=== PATIENT | female | born 1955 | race African-American/Black ===

== ENCOUNTER → 2020-08-30 10:26 | Outpatient (BNVA) | payer BC, SELFPAY | PROVIDERS: PCP Internal Medicine Endocrinology, Diabetes & Metabolism; Visit Provider Internal Medicine Cardiovascular Disease | DX: Z76.89 Persons encountering health services in other specified circumstances (principal) ==

== ENCOUNTER → 2020-12-08 08:46 | Outpatient (BNVA) | payer BC, SELFPAY | PROVIDERS: PCP Internal Medicine Endocrinology, Diabetes & Metabolism; Visit Provider Internal Medicine Cardiovascular Disease ==

== ENCOUNTER → 2020-12-20 08:26 | Outpatient (BNVA) | payer BC, SELFPAY | PROVIDERS: PCP Internal Medicine Endocrinology, Diabetes & Metabolism; Visit Provider Internal Medicine Cardiovascular Disease ==

== ENCOUNTER → 2021-01-20 09:44 | Outpatient (BNVA) | payer BC, SELFPAY | PROVIDERS: PCP Internal Medicine Endocrinology, Diabetes & Metabolism; Visit Provider Nurse Practitioner Family ==

== ENCOUNTER 2021-02-11 07:48 | Outpatient (REF) | payer BC, SELFPAY ==
--- NOTE | ~2021-02-11 | US_ITS ---
EXAMINATION: US RETROPERITONEAL LIMITED (RENAL ONLY) CLINICAL INFORMATION: Essential primary hypertension. COMPARISON: Previous abdominal ultrasound January 2016 TECHNIQUE: Doppler color and ortega-scale evaluation of the kidneys, bilateral renal arteries and renal veins including waveform spectral analysis. FINDINGS: RIGHT KIDNEY: 10 x 4.2 x 6.4 cm (SAG x AP x TRV). The kidney is normal in size, contour, and echogenicity. Renal cortical thickness is normal. No calculi or focal parenchymal lesions. No hydronephrosis. LEFT KIDNEY: 10 x 4.7 x 6.1 cm (SAG x AP x TRV). The kidney is normal in size, contour, and echogenicity. Renal cortical thickness is normal. No calculi or focal parenchymal lesions. No hydronephrosis. Peak systolic velocity in the abdominal aorta is slightly elevated measuring 107 cm/s and cannot be used to determine renal artery to aorta ratio. The right renal artery is patent. The right renal artery peak systolic velocity measures 72 cm/s proximally, 111 cm/s midportion and 120 cm/s distally. Resistive indices of the segmental renal arteries in the right kidney are normal measuring 0.7-0.8. The right renal vein is patent. The left renal artery is patent. The left renal artery peak systolic velocities measure 80 cm/s proximally, 108 cm/s midportion and 156 cm/s distally. Resistive indices of the segmental renal arteries in the left kidney are normal measuring 0.8. The left renal vein is patent. US/US renal BI IMPRESSION: Normal renal ultrasound. No evidence of renal artery stenosis.
--- NOTE | ~2021-02-11 | US_ITS ---
EXAMINATION: US RETROPERITONEAL LIMITED (RENAL ONLY) CLINICAL INFORMATION: Essential primary hypertension. COMPARISON: Previous abdominal ultrasound January 2016 TECHNIQUE: Doppler color and ortega-scale evaluation of the kidneys, bilateral renal arteries and renal veins including waveform spectral analysis. FINDINGS: RIGHT KIDNEY: 10 x 4.2 x 6.4 cm (SAG x AP x TRV). The kidney is normal in size, contour, and echogenicity. Renal cortical thickness is normal. No calculi or focal parenchymal lesions. No hydronephrosis. LEFT KIDNEY: 10 x 4.7 x 6.1 cm (SAG x AP x TRV). The kidney is normal in size, contour, and echogenicity. Renal cortical thickness is normal. No calculi or focal parenchymal lesions. No hydronephrosis. Peak systolic velocity in the abdominal aorta is slightly elevated measuring 107 cm/s and cannot be used to determine renal artery to aorta ratio. The right renal artery is patent. The right renal artery peak systolic velocity measures 72 cm/s proximally, 111 cm/s midportion and 120 cm/s distally. Resistive indices of the segmental renal arteries in the right kidney are normal measuring 0.7-0.8. The right renal vein is patent. The left renal artery is patent. The left renal artery peak systolic velocities measure 80 cm/s proximally, 108 cm/s midportion and 156 cm/s distally. Resistive indices of the segmental renal arteries in the left kidney are normal measuring 0.8. The left renal vein is patent. US/US renal doppler IMPRESSION: Normal renal ultrasound. No evidence of renal artery stenosis.
== END 2021-02-11 07:49 | disposition home or self-care (01) ==
LOC: HO.US 07:48
PROVIDERS: Visit Provider Nurse Practitioner Family
DX: I10 Essential (primary) hypertension (principal)
CPT/HCPCS: 76775; 93975

== ENCOUNTER → 2021-03-21 08:46 | Outpatient (BNVA) | payer BC, SELFPAY | PROVIDERS: PCP Internal Medicine Endocrinology, Diabetes & Metabolism; Visit Provider Internal Medicine Cardiovascular Disease ==

== ENCOUNTER 2021-06-17 11:29 | Outpatient (REF) | payer MEDICARE, SELFPAY ==
--- NOTE | ~2021-06-17 | MM_ITS ---
EXAMINATION: MM SCREENING DIGITAL BREAST TOMOSYNTHESIS, BILATERAL CLINICAL INFORMATION: Screening. Asymptomatic. The lifetime risk of breast cancer based on the Tyrer-Cuzick Model is 10%. COMPARISON: Mammography: 06/19/2019 (baseline). TECHNIQUE: Digital breast tomosynthesis is performed in both the craniocaudal and mediolateral oblique views along with computer-aided detection (CAD). Synthesized 2D images are generated from the tomosynthesis. FINDINGS: There are scattered areas of fibroglandular density (ACR BI-RADS breast composition Category b). There are no significant masses, abnormal calcifications, or other abnormalities. There is an incidental intramammary node posterior upper outer right breast similar to prior exam. Skin contours are smooth. MM/MM tomosynthesis screening BI IMPRESSION: No mammographic evidence of malignancy. ASSESSMENT: BI-RADS 2: Benign RECOMMENDATION: Routine annual mammography screening. This patient's information was entered into a reminder system with a target due date for their next mammogram.
== END 2021-06-17 11:30 | disposition home or self-care (01) ==
LOC: HO.MAMMO 11:29
PROVIDERS: PCP Family Medicine; Visit Provider Family Medicine
DX: Z12.31 Encounter for screening mammogram for malignant neoplasm of breast (principal)
CPT/HCPCS: 77063; 77067

== ENCOUNTER → 2021-06-24 08:18 | Outpatient (REF) | payer MEDICARE, SELFPAY ==
--- NOTE | 2021-06-24 08:35 | CA_ITS ---
Transthoracic Echocardiogram Patient (Last, First, Middle): Lisa Sequeira, Gender: Female Date of : 1955 Age: 66 Procedure Date: 06/24/2021 Procedure Type: Transthoracic Echocardiogram Location: OP Height: 157.48 cm Weight: 87.54 kg BSA: 1.88 m2 Heart Rate: bpm BP: 145 / 82 mmHg [place] Turner: MERYL Referring MD: Augusta Richard TANYARD WORKER-C Symptoms: I10 - Essential (primary) hypertension Study Quality: Fair ECG Rhythm: Sinus Conclusions: - The left ventricular systolic function is hyperdynamic. The visually estimated ejection fraction is >70%. - There is mild calcification of the aortic valve. - There is mild mitral annular calcification. Findings Left Ventricle Normal left ventricular cavity size. There is moderately increased left ventricular wall thickness. The left ventricular systolic function is hyperdynamic. The visually estimated ejection fraction is >70%. There is no evidence of regional wall motion abnormalities. E/E prime ratio is >15, consistent with elevated filling pressures. Evidence suggests grade I (mild) diastolic dysfunction. Right Ventricle Normal right ventricular cavity size and systolic function. Atria Both atria are normal in size. Aortic Valve There is a normal trileaflet aortic valve. There is mild calcification of the aortic valve. There is no aortic valve stenosis. There is no aortic valve regurgitation. Mitral Valve There is mild mitral annular calcification. There is no mitral valve regurgitation. There is no mitral valve stenosis. Pulmonic Valve The pulmonic valve was not well visualized. There is trace pulmonic valve regurgitation. Tricuspid Valve Normal tricuspid valve structure. There is trace tricuspid valve regurgitation. The pulmonary artery systolic pressure is normal. Great Vessels The asc aorta is normal in size. Venous The inferior vena cava is normal in size and collapses greater than 50% with inspiration. Pericardium/Pleural There is no evidence of pericardial effusion. Prior Study Comparison No prior study available for comparison. Measurements 2D Linear Measurements IVSd: 1.26 0.6-0.9/0.6-1.0 cm LVIDd: 3.17 3.9-5.3/4.2-5.9 cm LVIDd Index: 1.69 2.4-3.2/2.2-3.1 cm/m2 LVIDs: 1.84 2.0-3.6 cm LVPWd: 1.21 0.7-1.1 cm Ao Root: 2.70 2.1-3.5 cm LA Diam: 3.60 2.7-3.8/3.0-4.0 cm LAIDs Index: 1.91 1.5-2.3 cm/m2 LV Mass: 153.45 67-162/88-224 g LV Mass Index: 81.62 43-95/49-115 g/m2 LVOT Diam: 2.00 3.0+(-)1.3 cm 2D Systolic Function EF 4C: 77.20 >55% EF 2C: 77.90 >55% EF BiP: 77.90 >55% Mitral Valve MV Pk E: 0.57 MV PK A: 1.23 MV Decel Time: 234.00 E/A: 0.50 E'Lateral: 4.24 E'Medial: 3.37 E/E' Med: 16.80 E/E' Lat: 13.30 PHT: 69.00 MVA PHT: 3.19 Decel Bell: 2.42 Aortic Valve AoV Pk Monty: 1.35 AoV Mn Monty: 0.89 AoV VTI: 0.32 AoV Pk Grad: 7.00 Aov Mn Grad: 4.00 STEVIE Cont.VTI: 1.89 LVOT LVOT Pk Monty: 0.88 LVOT Mn Monty: 0.63 LVOT VTI: 0.19 LVOT Pk Grad: 3.00 LVOT Mn Grad: 2.00 LVOT Diam: 2.00 LVOT Area: 3.14 Diastolic Function MV Pk E: 0.57 MV Pk A: 1.23 E/A: 0.50 E'Medial: 3.37 E/E' Med: 16.80 E' Laterial: 4.24 E/E' Lat: 13.30 Right Ventricle TAPSE (mm): 28.00 TVS' Monty: 13.00 Tricuspid Valve TR Pk Monty: 1.98 TR Pk Grad: 16.00 Great Vessels Aorta Ao Root-2D: 2.70 2.0-3.7 cm Ao Asc: 3.20 2.1-3.4 cm Pulmonary Valve PV Pk Monty: 0.91 Peak PV Grad: 3.00 Updated in Other Vendor System with Status of Final Maury Coronado MD electronically signed on 06/24/2021 1:18:58 PM with status of Final
== END ==
LOC: HO.CARD 08:18
PROVIDERS: PCP Family Medicine; Visit Provider Nurse Practitioner Family
DX: I10 Essential (primary) hypertension (principal)
CPT/HCPCS: 93306

== ENCOUNTER → 2021-08-01 09:23 | Outpatient (BNVA) | payer OTHER, SELFPAY | PROVIDERS: PCP Family Medicine; Visit Provider Internal Medicine Cardiovascular Disease | DX: I65.29 Occlusion and stenosis of unspecified carotid artery (principal); I10 Essential (primary) hypertension; E78.5 Hyperlipidemia, unspecified | CPT/HCPCS: 93005; 99212 ==

== ENCOUNTER 2022-01-23 09:28 | Outpatient (REF) | payer OTHER, SELFPAY ==
[2022-01-23 10:56] LABS: Blood Urea Nitrogen 15 mg/dL (9-16); Estimated Glomerular Filt Rate 46
== END 2022-01-23 09:29 | disposition home or self-care (01) ==
LOC: HO.LAB 09:28
PROVIDERS: PCP Family Medicine; Visit Provider Surgery Vascular Surgery
DX: I65.23 Occlusion and stenosis of bilateral carotid arteries (principal)
CPT/HCPCS: 36415; 82565; 84520

== ENCOUNTER 2022-01-26 07:51 | Outpatient (REF) | payer OTHER, SELFPAY ==
--- NOTE | ~2022-01-26 | CT_ITS ---
EXAMINATION: CT ANGIOGRAM NECK WITH CONTRAST CLINICAL INFORMATION: Occlusion and stenosis of carotid artery. COMPARISON: None. TECHNIQUE: Test bolus sequences followed by intravenous administration 70 mL of Omnipaque 350. Helical imaging was performed in the axial plane from the thoracic inlet to the skull base. The data was processed at the certified neurodiagnostic technologist workstation for generation of MIP sequences. Angled MIPs and volume rendered reformatted images were also generated at an offline 3D workstation. Stenoses are assessed in accordance with NASCET criteria unless otherwise indicated. This CT examination was performed using dose optimization techniques as appropriate, variously including the following: *Automated exposure control *Adjustment of mA and/or kV according to patient size (this includes techniques or standardized protocols for targeted exams where dose is matched to indication/reason for exam; i.e. extremities or head) *Use of iterative reconstruction technique DLP: 461 mGy-cm FINDINGS: Neck CTA: The aortic arch and great vessel origins are patent. Atheromatous changes are seen at the carotid bifurcation without significant stenosis of the internal carotid artery. The cervical right ICA segment is patent. Left common carotid artery demonstrates moderate stenosis across a 1.0 cm segment along its mid to distal course. Moderate tandem stenoses are seen involving the distal left common carotid artery just proximal to the bifurcation. At the carotid bifurcation the left ICA is completely occluded. The cervical ICA does not reconstitute in the neck. Significant atheromatous changes are noted at the bilateral carotid siphons resulting in moderate stenosis of the right-sided cavernous and paraclinoid segment. The left carotid siphon is not significantly opacified. Calcific plaque narrows the origin of the right vertebral artery. Both vertebral arteries are otherwise patent in the neck. Head CTA: Limited evaluation demonstrates minimal reconstitution of the left carotid terminus through the anterior communicating artery and through the intact posterior communicating artery. The left MCA is opacified proximally opacified but demonstrates apparent severe stenosis of the distal M1 segment. No definite intracranial arterial occlusion is seen. Non-vascular findings: Emphysema is noted within the upper lungs. The cervical soft tissues are within normal limits. Degenerative changes are seen within the spine. Intracranial contents are not diagnostically assessed. No gross mass effect is seen. CT/CT angio neck IMPRESSION: Left internal carotid artery appears completely occluded from the origin without reconstitution in the neck. Mild reconstitution of the left carotid terminus through the anterior communicating artery and posterior communicating artery. Approximately severe stenosis seen at the distal left M1 MCA segment. Moderate stenosis of the left common carotid artery in its mid to distal course and tandem moderate stenoses involving the distal left common carotid artery just proximal to the carotid bifurcation.
[2022-01-26] MEDS: iohexoL 350 MG/ML 100 ML INFUS..BTL IV (10:26)
== END 2022-01-26 07:52 | disposition home or self-care (01) ==
LOC: HO.CT 07:51
PROVIDERS: PCP Family Medicine; Visit Provider Surgery Vascular Surgery
DX: I65.29 Occlusion and stenosis of unspecified carotid artery (principal)
CPT/HCPCS: 70498; Q9967

== ENCOUNTER → 2022-02-01 14:30 | Outpatient (BNVA) | payer OTHER, SELFPAY | PROVIDERS: PCP Family Medicine; Visit Provider Internal Medicine Cardiovascular Disease | DX: I65.29 Occlusion and stenosis of unspecified carotid artery (principal); I10 Essential (primary) hypertension | CPT/HCPCS: 99212 ==

== ENCOUNTER → 2022-04-17 10:29 | Outpatient (BNVA) | payer OTHER, SELFPAY | PROVIDERS: PCP Family Medicine; Visit Provider Internal Medicine Cardiovascular Disease | DX: I65.29 Occlusion and stenosis of unspecified carotid artery (principal); I10 Essential (primary) hypertension | CPT/HCPCS: 93005; 99212 ==

== ENCOUNTER 2022-06-26 10:33 | Outpatient (REF) | payer OTHER, SELFPAY ==
--- NOTE | ~2022-06-26 | MM_ITS ---
EXAMINATION: MM SCREENING DIGITAL BREAST TOMOSYNTHESIS, BILATERAL CLINICAL INFORMATION: Screening. Asymptomatic. The lifetime risk of breast cancer based on the Tyrer-Cuzick Model is 9%. COMPARISON: Mammography: 06/17/2021, 06/19/2019 (baseline) TECHNIQUE: Digital breast tomosynthesis is performed in both the craniocaudal and mediolateral oblique views along with computer-aided detection (CAD). Synthesized 2D images are generated from the tomosynthesis. FINDINGS: There are scattered areas of fibroglandular density (ACR BI-RADS breast composition Category b). There are no significant masses, abnormal calcifications, or other abnormalities. Breast tissue composition borders on predominantly fatty. Background stromal markings are normal. There is an incidental intramammary node again seen posterior upper outer right breast. The axilla are unremarkable. Incidental low left axillary tail node on left MLO view. Skin contours are smooth. MM/MM tomosynthesis screening BI IMPRESSION: No mammographic evidence of malignancy. ASSESSMENT: BI-RADS 2: Benign RECOMMENDATION: Routine annual mammography screening. This patient's information was entered into a reminder system with a target due date for their next mammogram.
== END 2022-06-26 10:34 | disposition home or self-care (01) ==
LOC: HO.MAMMO 10:33
PROVIDERS: Visit Provider Family Medicine
DX: Z12.31 Encounter for screening mammogram for malignant neoplasm of breast (principal)
CPT/HCPCS: 77063; 77067

== ENCOUNTER → 2022-12-18 14:59 | Outpatient (BNVA) | payer OTHER, SELFPAY | PROVIDERS: PCP Family Medicine; Referring Provider Family Medicine; Visit Provider Internal Medicine Cardiovascular Disease | DX: E78.5 Hyperlipidemia, unspecified (principal); I10 Essential (primary) hypertension | CPT/HCPCS: 93005; 99212 ==

== ENCOUNTER 2023-04-04 09:52 | Outpatient (AMB) | payer MEDICARE, SELFPAY ==
[2023-04-04 10:10] VITALS: BP 116/72; PULSE 84; BMI 33.7
--- NOTE | 2023-04-04 10:10 | MHC.OFFVIS ---
Intake Vital Signs 04/04/23 10:10 Height 5 ft 2 in Weight 184 lb 4.903 oz BMI 33.7 BP 116/72 Blood Pressure Location Lt brachial Position Sitting Pulse 84 Pulse Source Pulse Oximeter Intake Visit Reasons: 4 month follow up Intake Note: 4 month follow up. Competency Evaluated Nurse Aide Required: No Accompanied by: Self / Same As Patient Allergies garlic [GARLIC] Allergy (Intermediate, Verified 04/04/23 10:12) EYE SWELLING latex [LATEX] Allergy (Intermediate, Verified 04/04/23 10:12) PUFFINESS Medication List - Last Reconciled 04/04/23 by Isaiah Cummings MD alogliptin 12.5 mg PO DAILY amlodipine 10 mg (2 x 5 mg) PO DAILY 90 days aspirin (Adult Low Dose Aspirin) 81 mg PO DAILY atorvastatin 80 mg PO DAILY hydrochlorothiazide 25 mg PO DAILY 90 days insulin glargine (Lantus U-100 Insulin) 20 units subcut DAILY isosorbide mononitrate ER 30 mg PO DAILY losartan 100 mg PO DAILY metformin 1,000 mg PO BID metoprolol succinate ER 25 mg PO BID 90 days rivaroxaban (Xarelto) 2.5 mg PO BID HPI HPI Comments History of Present Illness Details 67-year-old female here for follow-up. She was seen previously for elevated blood pressure. She also had anemia in the past from low iron intake. She underwent cardiac catheterization in the past which did not show any significant coronary disease. She is returning for follow-up today. She has been taking her medications regularly. Blood pressure control is very good. She is currently taking amlodipine 10 mg, hydrochlorothiazide 25 mg, isosorbide mononitrate 30 mg, metoprolol succinate 25 mg twice a day and losartan 100 mg daily. She is also on rivaroxaban 2.5 mg twice a day for carotid disease. Clinically stable and has no chest discomfort shortness of breath. Has not been physically active. 04/04/23: She returns for follow-up. She recently had pneumonia and received antibiotics. She has been taking medications regularly. Blood pressure control has been good. She is denying any chest discomfort or shortness of breath. Compliant with medications. No bleeding concerns. [facility] Medical History (Updated 02/01/22 @ 22:36 by Isaiah Cummings MD) Carotid stenosis FHx: cholecystectomy Hyperlipidemia Surgical History History of cardiac cath History of cataract surgery Hx of section Family History Father No problems noted. Mother Diabetes Family/Other Stomach cancer Social History Alcohol intake: never Patient Tobacco Use Status: Former Tobacco user Quit Date: Unknown Years Smoked: 5 +/- Review of Systems Const Denies weakness ENT Denies dizziness Card Denies chest pain, Denies chest pain with activity, Denies syncope, Denies rapid heart rate, Denies pedal edema, Denies edema, Denies leg edema, Denies lightheadedness, Denies palpitations, Denies dyspnea, Denies dyspnea on exertion and Denies orthopnea Resp Denies cough, Denies dyspnea and Denies dyspnea on exertion GI Denies hematochezia and Denies change in stool character Musc Denies abnormal gait, Denies muscle cramps, Denies muscle weakness, Denies numbness, Denies radiating pain into limb and Denies tingling Neuro Denies abnormal gait, Denies dizziness, Denies syncope, Denies numbness, Denies tingling and Denies weakness Endo Denies palpitations Physical Exam Vital Signs: Last Vital Signs Pulse 84 04/04/23 10:10 BP 116/72 04/04/23 10:10 BMI result Body Mass Index 33.7 GENERAL APPEARANCE: in no acute distress, well developed, well nourished. NECK/THYROID: bilateral carotid bruits. No JVD. SKIN: no suspicious lesions, warm and dry. HEART: no murmurs, regular rate and rhythm, S1, S2 normal. LUNGS: clear to auscultation bilaterally. ABDOMEN: normal, bowel sounds present, soft, nontender, nondistended. EXTREMITIES: no clubbing, cyanosis, or edema. PERIPHERAL PULSES: equal. NEUROLOGIC: nonfocal, alert and oriented. PSYCH: mood/affect full range. Assessment & Plan Assessment & Plan (1) Hyperlipidemia: Code(s): E78.5 - Hyperlipidemia, unspecified (2) Carotid stenosis: Code(s): I65.29 - Occlusion and stenosis of unspecified carotid artery (3) Hypertension: Code(s): I10 - Essential (primary) hypertension Plan Pleasant 67 year female here for follow-up. She has background of hypertension. She is on multiple medications currently with good blood pressure control. No anginal symptoms. Continue same medications for now. She has carotid stenosis and currently is on Xarelto as per vascular surgery. She is also on atorvastatin 80 mg once a day. She should have once a year fasting lipid panel. LDL target less than 70. Clinically stable. She will follow-up with us in few months. Thank you for allowing me to participate in the care of your patient. Please feel free to contact me if you have any questions. Coding Level of Care Code Est Pt Level 4 (59005) Diagnoses Hyperlipidemia E78.5 Carotid stenosis I65.29 Hypertension I10
== END 2023-04-04 10:35 | disposition home or self-care (01) ==
PROVIDERS: Visit Provider Internal Medicine Cardiovascular Disease
DX: E78.5 Hyperlipidemia, unspecified (principal); I65.29 Occlusion and stenosis of unspecified carotid artery; I10 Essential (primary) hypertension
CPT/HCPCS: 99214

== ENCOUNTER → 2023-04-04 09:52 | Outpatient (BNVA) | payer MEDICARE, SELFPAY | PROVIDERS: Visit Provider Internal Medicine Cardiovascular Disease | DX: I65.29 Occlusion and stenosis of unspecified carotid artery (principal); I10 Essential (primary) hypertension; E78.5 Hyperlipidemia, unspecified; Z98.890 Other specified postprocedural states | CPT/HCPCS: 99212 ==

== ENCOUNTER 2023-07-03 08:21 | Outpatient (REF) | payer MEDICARE, SELFPAY | END 2023-07-03 08:22 | disposition home or self-care (01) | LOC: HO.MAMMO 08:21 | PROVIDERS: PCP Family Medicine; Visit Provider Family Medicine | DX: Z12.31 Encounter for screening mammogram for malignant neoplasm of breast (principal) | CPT/HCPCS: 77063; 77067 ==

== ENCOUNTER → 2023-07-03 08:45 | Outpatient (BNV) | payer MEDICARE, SELFPAY | PROVIDERS: PCP Family Medicine; Visit Provider Radiology Diagnostic Radiology | DX: Z12.31 Encounter for screening mammogram for malignant neoplasm of breast (principal) | CPT/HCPCS: 77063; 77067 ==

== ENCOUNTER 2023-08-08 10:49 | Outpatient (AMB) | payer OTHER, SELFPAY ==
[2023-08-08 11:09] VITALS: BP 124/68; PULSE 72; BMI 34.3
--- NOTE | 2023-08-08 11:09 | A.OFFVIS_ITS ---
Intake Vital Signs 08/08/23 11:09 Height 5 ft 2 in Weight 187 lb 6.287 oz BMI 34.3 BP 124/68 Blood Pressure Location Lt brachial Position Sitting Pulse 72 Intake Visit Reasons: 4 mth f/up Intake Note: 4 month follow up 911 Emergency Services Dispatcher Required: No Accompanied by: Self / Same As Patient Allergies garlic [GARLIC] Allergy (Intermediate, Verified 08/08/23 11:12) EYE SWELLING latex [LATEX] Allergy (Intermediate, Verified 08/08/23 11:12) PUFFINESS Medication List - Last Reconciled 08/08/23 by Isaiah Cummings MD alogliptin 12.5 mg PO DAILY amlodipine 10 mg (2 x 5 mg) PO DAILY 90 days aspirin (Adult Low Dose Aspirin) 81 mg PO DAILY atorvastatin 80 mg PO DAILY hydrochlorothiazide 25 mg PO DAILY 90 days insulin glargine (Lantus U-100 Insulin) 20 units subcut DAILY isosorbide mononitrate ER 30 mg PO DAILY losartan 100 mg PO DAILY metformin 1,000 mg PO BID metoprolol succinate ER 25 mg PO BID 90 days rivaroxaban (Xarelto) 2.5 mg PO BID HPI HPI Comments History of Present Illness Details 68-year-old female here for follow-up. She was seen previously for elevated blood pressure. She also had anemia in the past from low iron intake. She underwent cardiac catheterization in the past which did not show any significant coronary disease. She is returning for follow-up today. She has been taking her medications regularly. Blood pressure control is very good. She is currently taking amlodipine 10 mg, hydrochlorothiazide 25 mg, isosorbide mononitrate 30 mg, metoprolol succinate 25 mg twice a day and losartan 100 mg daily. She is also on rivaroxaban 2.5 mg twice a day for carotid disease. Clinically stable and has no chest discomfort shortness of breath. Has not been physically active. 04/04/23: She returns for follow-up. Abdullahi bateman recently had pneumonia and received antibiotics. She has been taking medications regularly. Blood pressure control has been good. She is denying any chest discomfort or shortness of breath. Compliant with medications. No bleeding concerns. 08/08/2023: She returns for follow-up. She has been doing well. No chest discomfort shortness of breath. She has not started exercising yet. Blood pressure control continues to be very good. She is taking medication regularly. No bleeding issues currently. She is taking rivaroxaban 2.5 mg twice a day for peripheral vascular disease. [facility] Medical History (Updated 02/01/22 @ 22:36 by Isaiah Cummings MD) Hyperlipidemia Carotid stenosis FHx: cholecystectomy Surgical History History of cardiac cath Hx of section History of cataract surgery Family History Father No problems noted. Mother Diabetes Family/Other Stomach cancer Social History Alcohol intake: never Patient Tobacco Use Status: Former Tobacco user Quit Date: Unknown Years Smoked: 5 +/- Review of Systems Const Denies weakness ENT Denies dizziness Card Denies chest pain, Denies chest pain with activity, Denies syncope, Denies rapid heart rate, Denies pedal edema, Denies edema, Denies leg edema, Denies lightheadedness, Denies palpitations, Denies dyspnea, Denies dyspnea on exertion and Denies orthopnea Resp Denies cough, Denies dyspnea and Denies dyspnea on exertion GI Denies hematochezia and Denies change in stool character Musc Denies abnormal gait, Denies muscle cramps, Denies muscle weakness, Denies numbness, Denies radiating pain into limb and Denies tingling Neuro Denies abnormal gait, Denies dizziness, Denies syncope, Denies numbness, Denies tingling and Denies weakness Endo Denies palpitations Physical Exam Vital Signs: Last Vital Signs Pulse 72 08/08/23 11:09 BP 124/68 08/08/23 11:09 BMI result Body Mass Index 34.3 GENERAL APPEARANCE: in no acute distress, well developed, well nourished. NECK/THYROID: bilateral carotid bruits. No JVD. SKIN: no suspicious lesions, warm and dry. HEART: no murmurs, regular rate and rhythm, S1, S2 normal. LUNGS: clear to auscultation bilaterally. ABDOMEN: normal, bowel sounds present, soft, nontender, nondistended. EXTREMITIES: no clubbing, cyanosis, or edema. PERIPHERAL PULSES: equal. NEUROLOGIC: nonfocal, alert and oriented. PSYCH: mood/affect full range. Assessment & Plan Assessment & Plan (1) Hypertension: Code(s): I10 - Essential (primary) hypertension Plan Pleasant 68-year-old female who is here for follow-up. She has background of hypertension, hyperlipidemia, diabetes and carotid disease. She follows up at [facility] vascular surgery office for carotid stenosis. Blood pressure control is good. She is taking amlodipine 10 mg daily, hydrochlorothiazide 25 mg daily, isosorbide mononitrate 30 mg daily, metoprolol succinate 25 mg twice a day and losartan 100 mg daily. On rivaroxaban for peripheral vascular disease. She should have fasting lipid panel once a year. LDL target is less than 70. Thank you for allowing me to participate in the care of your patient. Please feel free to contact me if you have any questions. Coding Level of Care Code Est Pt Level 3 (29385) Diagnoses Hypertension I10
== END 2023-08-08 11:29 | disposition home or self-care (01) ==
PROVIDERS: PCP Family Medicine; Visit Provider Internal Medicine Cardiovascular Disease
DX: I10 Essential (primary) hypertension (principal)
CPT/HCPCS: 99213

== ENCOUNTER → 2023-08-08 10:49 | Outpatient (BNVA) | payer OTHER, SELFPAY | PROVIDERS: PCP Family Medicine; Visit Provider Internal Medicine Cardiovascular Disease | DX: I10 Essential (primary) hypertension (principal) | CPT/HCPCS: 99212 ==

== ENCOUNTER 2024-04-07 08:52 | Outpatient (AMB) | payer OTHER, SELFPAY ==
--- NOTE | 2024-04-07 09:11 | MHC.OFFVIS ---
Vital Signs 04/07/24 09:12 Height 5 ft 2 in Weight 185 lb 10.067 oz BMI 33.9 BP 120/62 Blood Pressure Location Lt brachial Position Sitting Pulse 66 Pulse Source Monitor Intake Visit Reasons: 7.5 mthf/up Intake Note: pt its here for her f/up pt state that she is doing fine. Medicaid Plan Compliance Director Required: No Accompanied by: Self / Same As Patient Allergies garlic [GARLIC] Allergy (Intermediate, Verified 08/08/23 11:12) EYE SWELLING latex [LATEX] Allergy (Intermediate, Verified 08/08/23 11:12) PUFFINESS Medication List - Last Reconciled 04/07/24 by Isaiah Cummings MD alogliptin 12.5 mg PO DAILY amlodipine 10 mg (2 x 5 mg) PO DAILY 90 days aspirin (Adult Low Dose Aspirin) 81 mg PO DAILY atorvastatin 80 mg PO DAILY hydrochlorothiazide 25 mg PO DAILY 90 days insulin glargine (Lantus U-100 Insulin) 20 units subcut DAILY isosorbide mononitrate ER 30 mg PO DAILY losartan 100 mg PO DAILY metformin 1,000 mg PO BID metoprolol succinate ER 25 mg PO BID 90 days rivaroxaban (Xarelto) 2.5 mg PO BID HPI Comments Details: 68-year-old female here for follow-up. She was seen previously for elevated blood pressure. She also had anemia in the past from low iron intake. She underwent cardiac catheterization in the past which did not show any significant coronary disease. She is returning for follow-up today. She has been taking her medications regularly. Blood pressure control is very good. She is currently taking amlodipine 10 mg, hydrochlorothiazide 25 mg, isosorbide mononitrate 30 mg, metoprolol succinate 25 mg twice a day and losartan 100 mg daily. She is also on rivaroxaban 2.5 mg twice a day for carotid disease. Clinically stable and has no chest discomfort shortness of breath. Has not been physically active. 04/04/23: She returns for follow-up. She recently had pneumonia and received antibiotics. She has been taking medications regularly. Blood pressure control has been good. She is denying any chest discomfort or shortness of breath. Compliant with medications. No bleeding concerns. 08/08/2023: She returns for follow-up. She has been doing well. No chest discomfort shortness of breath. She has not started exercising yet. Blood pressure control continues to be very good. She is taking medication regularly. No bleeding issues currently. She is taking rivaroxaban 2.5 mg twice a day for peripheral vascular disease. 04/07/2024: She is here for follow-up. She is doing well. Blood pressure is well controlled. Taking medication regularly. We discussed about exercise and she is saying she plans to start soon. Her sugar control has been up and down and I have advised her that regular exercise will help her. [facility] Medical History (Updated 02/01/22 @ 22:36 by Isaiah Cummings MD) Hyperlipidemia Carotid stenosis FHx: cholecystectomy Surgical History History of cardiac cath Hx of section History of cataract surgery Family History Father No problems noted. Mother Diabetes Family/Other Stomach cancer Social History Alcohol intake: never Patient Tobacco Use Status: Former Tobacco user Years Smoked: 5 +/- Review of Systems Const Denies chills, Denies fatigue, Denies fever(s), Denies frequent falls, Denies weakness, Denies weight gain and Denies weight loss ENT Denies dizziness Card Denies chest pain, Denies leg edema, Denies lightheadedness, Denies palpitations, Denies dyspnea and Denies dyspnea on exertion Resp Denies cough, Denies dyspnea and Denies dyspnea on exertion GI Denies hematochezia Musc Denies abnormal gait, Denies muscle weakness, Denies numbness, Denies radiating pain into limb and Denies tingling Neuro Denies abnormal gait, Denies dizziness, Denies frequent falls, Denies numbness, Denies tingling and Denies weakness Endo Denies fatigue and Denies palpitations Physical Exam Vital Signs: Last Vital Signs Pulse 66 04/07/24 09:12 BP 120/62 04/07/24 09:12 BMI result Body Mass Index 33.9 GENERAL APPEARANCE: in no acute distress, well developed, well nourished. NECK/THYROID: bilateral carotid bruits. No JVD. SKIN: no suspicious lesions, warm and dry. HEART: no murmurs, regular rate and rhythm, S1, S2 normal. LUNGS: clear to auscultation bilaterally. ABDOMEN: normal, bowel sounds present, soft, nontender, nondistended. EXTREMITIES: no clubbing, cyanosis, or edema. PERIPHERAL PULSES: equal. NEUROLOGIC: nonfocal, alert and oriented. PSYCH: mood/affect full range. Office Procedures EKG Details: Sinus rhythm 66 beats per minute, normal axis, normal ECG, QTC 413 milliseconds. 55909-Bgfqvvojzugzknsdr, Complete Assessment & Plan Assessment & Plan (1) Hypertension: Code(s): I10 - Essential (primary) hypertension Category: Medical (2) Carotid stenosis: Code(s): I65.29 - Occlusion and stenosis of unspecified carotid artery Category: Medical (3) Hyperlipidemia: Code(s): E78.5 - Hyperlipidemia, unspecified Category: Medical Plan Pleasant 68-year-old female with hypertension, hyperlipidemia, diabetes and carotid stenosis. She is taking aspirin and low-dose rivaroxaban for the peripheral vascular disease. Taking medications regularly. Blood pressure is well controlled. She should have fasting lipid panel once a year with LDL target less than 70. On atorvastatin 80 mg. She plans to start exercise and I have encouraged her to do regular exercise. She will see us back in 6 months. Thank you for allowing me to participate in the care of your patient. Please feel free to contact me if you have any questions. Coding Level of Care Code Est Pt Level 4 (41715) Diagnoses Hypertension I10 Carotid stenosis I65.29 Hyperlipidemia E78.5 CPT Codes EKG - CPT: 57841-Kuesnuxidzrdfjpbf, Complete ([id number])
[2024-04-07 09:12] VITALS: BP 120/62; PULSE 66; BMI 33.9
== END 2024-04-07 09:31 | disposition home or self-care (01) ==
PROVIDERS: PCP Family Medicine; Visit Provider Internal Medicine Cardiovascular Disease
DX: I10 Essential (primary) hypertension (principal); I65.29 Occlusion and stenosis of unspecified carotid artery; E78.5 Hyperlipidemia, unspecified
CPT/HCPCS: 93010; 99214

== ENCOUNTER → 2024-04-07 08:52 | Outpatient (BNVA) | payer OTHER, SELFPAY | PROVIDERS: PCP Family Medicine; Visit Provider Internal Medicine Cardiovascular Disease | DX: I10 Essential (primary) hypertension (principal); I65.29 Occlusion and stenosis of unspecified carotid artery; E78.5 Hyperlipidemia, unspecified | CPT/HCPCS: 93005; 99212 ==

== ENCOUNTER 2024-07-17 12:22 | Outpatient (REF) | payer OTHER, SELFPAY ==
--- NOTE | ~2024-07-17 | MM_ITS ---
EXAMINATION: MM SCREENING DIGITAL BREAST TOMOSYNTHESIS, BILATERAL CLINICAL INFORMATION: Screening. Asymptomatic. COMPARISON: Mammography: Comparison is made with available priors TECHNIQUE: Digital breast mammography with tomosynthesis is performed in both the craniocaudal and mediolateral oblique views along with computer-aided detection (CAD). FINDINGS: There are scattered areas of fibroglandular density (ACR BI-RADS breast composition Category b). There are no significant masses, abnormal calcifications, or other abnormalities. MM/MM tomosynthesis screening BI IMPRESSION: No mammographic evidence of malignancy. ASSESSMENT: BI-RADS BI-RADS 1 - Negative RECOMMENDATION: Routine annual mammography screening. 1 year F/U This examination should not preclude the clinical evaluation of a suspicious palpable abnormality. This patient's information was entered into a reminder system with a target due date for their next mammogram. Electronically signed by: Flor Mark DO 07/26/2024 10:30 AM EDT
== END 2024-07-17 12:23 | disposition home or self-care (01) ==
LOC: HO.MAMMO 12:22
PROVIDERS: PCP Family Medicine; Visit Provider Family Medicine
DX: Z12.31 Encounter for screening mammogram for malignant neoplasm of breast (principal)
CPT/HCPCS: 77063; 77067

== ENCOUNTER → 2024-07-17 12:45 | Outpatient (BNV) | payer OTHER, SELFPAY | PROVIDERS: PCP Family Medicine; Visit Provider Internal Medicine | DX: Z12.31 Encounter for screening mammogram for malignant neoplasm of breast (principal) | CPT/HCPCS: 77063; 77067 ==

== ENCOUNTER 2025-02-25 10:20 | Outpatient (AMB) | payer OTHER, SELFPAY ==
--- NOTE | 2025-02-25 10:42 | MHC.OFFVIS ---
Vital Signs 02/25/25 10:50 Height 5 ft 2 in Weight 186 lb 8.177 oz BMI 34.1 BP 140/62 H Blood Pressure Location Lt brachial Position Sitting Pulse 71 Pulse Source Monitor Intake Visit Reasons: r/s 10/01/24 6 mos followup Intake Note: r/s-6 mthb f/up First Coat Sander Required: No Accompanied by: Self / Same As Patient Allergies garlic [GARLIC] Allergy (Intermediate, Verified 08/08/23 11:12) EYE SWELLING latex [LATEX] Allergy (Intermediate, Verified 08/08/23 11:12) PUFFINESS Medication List - Last Reconciled 02/25/25 by Isaiah Cummings MD alogliptin 12.5 mg PO DAILY amlodipine 10 mg (2 x 5 mg) PO DAILY 90 days aspirin (Adult Low Dose Aspirin) 81 mg PO DAILY atorvastatin 80 mg PO DAILY hydrochlorothiazide 25 mg PO DAILY 90 days insulin glargine (Lantus U-100 Insulin) 20 units subcut DAILY isosorbide mononitrate ER 30 mg PO DAILY losartan 100 mg PO DAILY metformin 1,000 mg PO BID metoprolol succinate ER 25 mg PO BID 90 days rivaroxaban (Xarelto) 2.5 mg PO BID HPI Comments Details: 69-year-old female here for follow-up. She was seen previously for elevated blood pressure. She also had anemia in the past from low iron intake. She underwent cardiac catheterization in the past which did not show any significant coronary disease. She is returning for follow-up today. She has been taking her medications regularly. Blood pressure control is very good. She is currently taking amlodipine 10 mg, hydrochlorothiazide 25 mg, isosorbide mononitrate 30 mg, metoprolol succinate 25 mg twice a day and losartan 100 mg daily. She is also on rivaroxaban 2.5 mg twice a day for carotid disease. Clinically stable and has no chest discomfort shortness of breath. Has not been physically active. 04/04/23: She returns for follow-up. She recently had pneumonia and received antibiotics. She has been taking medications regularly. Blood pressure control has been good. She is denying any chest discomfort or shortness of breath. Compliant with medications. No bleeding concerns. 08/08/2023: She returns for follow-up. She has been doing well. No chest discomfort shortness of breath. She has not started exercising yet. Blood pressure control continues to be very good. She is taking medication regularly. No bleeding issues currently. She is taking rivaroxaban 2.5 mg twice a day for peripheral vascular disease. 04/07/2024: She is here for follow-up. She is doing well. Blood pressure is well controlled. Taking medication regularly. We discussed about exercise and she is saying she plans to start soon. Her sugar control has been up and down and I have advised her that regular exercise will help her. 02/25/2025: Here for follow-up. Denying any symptoms. Blood pressure is 140/62. She has not been checking her blood pressure at home. We discussed about her diet and she appears to have significant salt intake in her day-to-day life. 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 She has cut back significantly more recently but continues to consume foods with high salt content. She is on multiple medications for hypertension currently and has carotid stenosis. [facility] Medical History Hyperlipidemia Carotid stenosis FHx: cholecystectomy Surgical History History of cardiac cath Hx of section History of cataract surgery Family History Father No problems noted. Mother Diabetes Family/Other Stomach cancer Social History Alcohol intake: never Patient Tobacco Use Status: Former Tobacco user Years Smoked: 5 +/- Review of Systems Const Denies chills, Denies fatigue, Denies fever(s), Denies frequent falls, Denies weakness, Denies weight gain and Denies weight loss ENT Denies dizziness Card Denies chest pain, Denies leg edema, Denies lightheadedness, Denies palpitations, Denies dyspnea and Denies dyspnea on exertion Resp Denies cough, Denies dyspnea and Denies dyspnea on exertion GI Denies hematochezia Musc Denies abnormal gait, Denies muscle weakness, Denies numbness, Denies radiating pain into limb and Denies tingling Neuro Denies abnormal gait, Denies dizziness, Denies frequent falls, Denies numbness, Denies tingling and Denies weakness Endo Denies fatigue and Denies palpitations Physical Exam Vital Signs: Last Vital Signs Pulse 71 02/25/25 10:50 BP 140/62 H 02/25/25 10:50 BMI result Body Mass Index 34.1 GENERAL APPEARANCE: in no acute distress, well developed, well nourished. NECK/THYROID: bilateral carotid bruits. No JVD. SKIN: no suspicious lesions, warm and dry. HEART: no murmurs, regular rate and rhythm, S1, S2 normal. LUNGS: clear to auscultation bilaterally. ABDOMEN: normal, bowel sounds present, soft, nontender, nondistended. EXTREMITIES: no clubbing, cyanosis, or edema. PERIPHERAL PULSES: equal. NEUROLOGIC: nonfocal, alert and oriented. PSYCH: mood/affect full range. Office Procedures EKG Details: Sinus rhythm 71 beats per minute, normal axis, normal ECG, QTC 432 milliseconds. 42712-Aqlmjarfztcztzhdx, Complete Assessment & Plan Assessment & Plan (1) Hypertension: Code(s): I10 - Essential (primary) hypertension Category: Medical (2) Carotid stenosis: Code(s): I65.29 - Occlusion and stenosis of unspecified carotid artery Category: Medical (3) Hyperlipidemia: Code(s): E78.5 - Hyperlipidemia, unspecified Category: Medical Plan Pleasant 69-year-old female with hypertension, hyperlipidemia, diabetes and carotid stenosis. She is taking aspirin and low-dose rivaroxaban for the peripheral vascular disease. Taking medications regularly. Blood pressure is elevated. She has been taking multiple medications and she has resistant hypertension. She also significant salt intake and I have advised her to cut back and stop using salt which is likely reason her blood pressure gets out of control. She will continue to monitor her blood pressure and will keep a log. She should have fasting lipid panel once a year with LDL target less than 70. On atorvastatin 80 mg. f/u in few months. Thank you for allowing me to participate in the care of your patient. Please feel free to contact me if you have any questions. Coding Level of Care Code Est Pt Level 4 (06971) Diagnoses Hypertension I10 Carotid stenosis I65.29 Hyperlipidemia E78.5 CPT Codes EKG - CPT: 52244-Limjtkhprvjdrbunu, Complete ([id number])
[2025-02-25 10:50] VITALS: BP 140/62; PULSE 71; BMI 34.1
--- OUTSIDE RECORDS SUMMARY | 2025-02-25 11:00 | XMS_ITS | Data Portability ---
Author Organization [facility], [address] Address [address] [place] [id number] Assessment No assessment recorded. Plan of Treatment Reminders Order Date Submit Date Provider Last Modified By Organization Details Last Modified Time Details Appointments None recorded. Lab None recorded. Referral None recorded. Procedures None recorded. Surgeries None recorded. Imaging XR, chest, 2 view 2022 023 [facility], [address] [place] [address], [address], 13:18:19 Medication Orders doxycycline hyclate 100 mg capsule [address], [address] [place] [address], [address], 3 14:57:34 Tessalon Perles 100 mg capsule [address], [address] [place] [address], [address], 3 14:57:34 fluticasone propionate 50 mcg/actuati on nasal spray,suspe nsion [address], [address] [place] [address], [address], 3 14:57:35 Patient TargetsNo targets recorded. Patient Instructions Encounter Date Encounter Id Patient Instructions Last Modified By Organization Details Last Modified Time 02/06/2023 [id number] cough: care instructions [place] [id number] Not available 02/06/2023 09:47:51 walking pneumonia: care instructions [place] [id number] Not available 02/06/2023 09:48:02 02/12/2023 [id number] cough: care instructions [email or web address] Not available 02/12/2023 11:21:36 Reason for Referral None Reported. Results Created Date Observation Date Name Description Value Unit Range Abnormal Flag Note LastModifiedBy Organization Detail LastModifiedTime 02/13/2002/12/2023 XR, chest , 2 view No observ ation record ed. [email or web address] [facility] [address] [place], [address], 02/12/2023 15:02:33 02/13/20 XR, chest , 2 view No observ ation record ed. [email or web address] [facility] [address] [place], [address], 02/12/2023 18:29:54 Result Notes None recorded. Problems Name Problem SNOMED Code Status Onset Date Resolution Date Notes Provider Name and Address Organization Details Recorded Time Diabetes mellitus 66516212 Active 2022 IRIS COUVERTIE R null, [place] - [facility] 3 09:22:32 Essential hypertension 27573812 Active 2022 IRIS COUVERTIE R null, PA - [facility] 3 09:22:43 Hyperlipidemia 56226338 Active 2022 IRIS COUVERTIE R null, PA - [facility] 3 09:22:51 Problem Notes None recorded. Procedures Surgical History Date Name Laterality Status Provider Name and Address Organization Details Recorded Time left cataract extraction completed IRIS COUVERTIER PA - [facility] 02/06/2023 09:23:30 cholecystectomy completed IRIS COUVERTIER PA - [facility] 02/06/2023 09:24:16 section completed IRIS COUVERTIER PA - [facility] 02/06/2023 09:24:23 Imaging Results None recorded. Procedure Notes None recorded. Medical Equipment None Reported. Allergies Allergen ID Allergen Name Allergen Category Reaction Reaction Severity Criticality Documentation Date Start Date Code Code System Note Provider Name and Address Organization Details Recorded Time 660125 latex environme nt,medica tion Not available Not available Not available 02/06/2023 02557 91 RxNorm IRIS COUVERTIE R null, PA [place] [facility] 3 09:20:38 045447 garlic preparati on food,medi cation Not available Not available Not available 02/06/2023 81575 7 RxNorm ISAURA LOWLAKE Lazaro [facility] 3 09:21:10 Medications Name Sig Start Date Stop Date Status Note LastModified by Organization Details LastModified Time doxycycline hyclate 100 mg capsule Take 1 capsule twice a day by oral route for 7 days. 2022 active Not Available Not Available Not Avai lable Tessalon Perles 100 mg capsule Take 1 capsule 3 times a day by oral route for 5 days. 2022 active Not Available Not Available Not Avai lable fluticasone propionate 50 mcg/actuatio n nasal spray,suspen ava [place] 1 spray every day by intranasal route for 5 days. 2022 active Not Available Not Available Not Avai lable atorvastatin active Not Available Not Available Not Available aspirin active Not Available Not Avail able Not Available hydrochlorot hiazide active Not Available Not Available Not Available amlodipine active Not Available Not Av ailable Not Available losartan active Not Available Not Avai lable Not Available isosorbide active Not Available Not Av ailable Not Available metoprolol succinate active Not Available Not Available No t Available metformin active Not Available Not Christie ilable Not Available Lantus Solostar U-100 Insulin active Not Available Not Available Not Available Xarelto active Not Available Not Avail able Not Available alogliptin active Not Available Not Av ailable Not Available Vitals Date Recorded Body height Body mass index (BMI) Body weight Body temperature Respiratory rate Heart rate Oxygen saturation Oxygen saturation in Arterial blood by Pulse oximetry Systolic blood pressure Diastolic blood pressure Provider Name and Address Organization Details Last Updated DateTime 3 157.48 cm 33.8 kg/m2 59213.5 9 g 98.6 [degF] 18 /min 70 /min 98 % 98 % 154 mm[Hg] 82 mm[Hg] ISAURA Newell [facility] 3 09:26:23 Date Recorded Body height Body mass index (BMI) Body weight Respiratory rate Oxygen saturation Oxygen saturation in Arterial blood by Pulse oximetry Heart rate Body temperature Systolic blood pressure Diastolic blood pressure Systolic blood pressure Diastolic blood pressure Provider Name and Address Organization Details Last Updated DateTime 157.48 cm 33.8 kg/m2 26844.5 9 g 20 /min 100 % 100 % 85 /min 98.5 [degF] 164 mm[Hg] 83 mm[Hg] 148 mm[Hg] 78 mm[Hg] Mei Colvin PA - [facility] 11:19:17 Social History Question Answer Notes LastModified by [employer] [facility] Details LastModified Time Tobacco Smoking Status Former Smoker ISAURA harris PA - [facility] 02/06/2023 09:23:42 What Is Your Water Source? City Information not available 02/06/2023 What Is Your Heat Source? Other Information not available 02/06/2023 Have You Had Direct Contact, Or Contact During Intimacy, With Monkeypox Rash, Scabs, Or Body Fluids From A Person With Monkeypox? No Information not available 02/06/2023 Have You Recently Traveled Abroad? No Information not available 02/06/2023 Sex: Unknown Functional Status Question Answer Note LastModified by Organizat ion Details LastModified Time Do you use any illicit or recreational drugs? No Information not available 02/06/2023 What is your level of alcohol consumption? None Information not available 02/06/2023 Mental Status None recorded. Family History Relationship Description Onset Age of this Age Resolved Age Notes LastModified by Organization Details LastModified Time Father No current problems or disability Not available 09:23:34 Mother No current problems or disability Not available 09:23:34 Medical History No medical history recorded. Gynecological History Statement/Question Response Is there any chance of ? No LMP N/A Obstetrics History GPAL:G 0 P 0 0 0 0 Immunizations Vaccine Type Date Status Note Provider Nam e and Address Organization Details Recorded Time COVID-19, mRNA, LNP-S, PF, 30 mcg/0.3 mL dose 05/09/2021 completed Mei harris PA - [facility] 02/12/2023 11:14:11 COVID-19, mRNA, LNP-S, PF, 30 mcg/0.3 mL dose 05/31/2021 completed [facility] - [facility] 02/12/2023 11:14:11 COVID-19, mRNA, LNP-S, PF, 30 mcg/0.3 mL dose, christina-sucrose 11/05/2021 completed [facility] - [facility] 02/12/2023 11:14:11 Past Encounters Encounter ID Performer Location Encounter Start Date Encounter Closed Date Diagnosis/Indication Diagnosis SNOMED-CT Code Diagnosis ICD10 Code Diagnosis Note [id number] [place]enna [place] [address] [address] 02/06/2023 09:03:56 02/06/2023 09:48:59 Community acquired pneumonia 311048814 J18.9 no Xray available, treating based on examPlease follow up with PCP or Urgent Care in 3-5 days if no improvemen t or if any new symptoms occur that are concerning .Call 911 or go to nearest ER if you develop any shortness of breath, chest pain, severe headache, dizziness, or other concerning symptoms [id number] Carlos Mckenna [place] [address] [address] 02/12/2023 11:01:11 02/12/2023 11:58:26 Cough 16885987 R05.9 Improving Community acquired pneumonia 241523650 J18.9 Finish Doxycyclin e and follow up with your PA Primary CareChest Xray shows a mild infiltrate right lower lobs, likely resolving from last visit but no Xray for comparison Your x-ray will be reviewed by a radiologis t. You will be notified of any discrepanc ies between findings discussed at your visit today and the radiology interpreta tion. Health Concerns Section Related Observation LastModified by Organization Detai ls LastModified Time None Recorded Concern Status LastModified by Organization Details LastModified Time None Recorded Advance Directives Directive None Recorded Payers Insurance Date Sequence Insurance Name Policy Number Policy López Covered Member ID López Member ID Guarantor Name 02/25/2023 [facility] Lisa Sequeira [id number] Lisa Sequeira Notes Date Note Type Note Provider Name and Address Organization Details Recorded Time 02/06/2023 text/html CoughReported bypatient.Severity: worsening; moderate Duration:10 days Associated Symptoms:no fever; no nausea; no vomiting; no wheezing;post nasal drip Carlos Mckenna MD [address] [place], [phone], [facility] [employer] [facility] 02/06/2023 09:49:37 02/12/2023 text/html CoughReported bypatient.Quality:i ntermittent Severity:improving Timing:improving Context:Patient denies vaping; non-smoker Associated Symptoms:no fever; no chills; no chest pain; no heartburn; no nausea; no vomiting; no edema; no agitation; no wheezing; no post nasal drip Wants to see PCP at the [facility] but needs a letter to clear her Carlos Mckenna MD [address] [place], [phone], [facility] 02/13/2023 13:31:48 OBGyn Episode No OBEpisode recorded.
== END 2025-02-25 11:11 | disposition home or self-care (01) ==
LOC: HO.HCS 10:20
PROVIDERS: PCP Family Medicine; Visit Provider Internal Medicine Cardiovascular Disease
DX: I10 Essential (primary) hypertension (principal); I65.29 Occlusion and stenosis of unspecified carotid artery; E78.5 Hyperlipidemia, unspecified
CPT/HCPCS: 93010; 99214

== ENCOUNTER → 2025-02-25 10:20 | Outpatient (BNVA) | payer OTHER, SELFPAY | PROVIDERS: PCP Family Medicine; Visit Provider Internal Medicine Cardiovascular Disease | DX: I10 Essential (primary) hypertension (principal); I65.29 Occlusion and stenosis of unspecified carotid artery; E78.5 Hyperlipidemia, unspecified | CPT/HCPCS: 93005; 99212 ==

== ENCOUNTER 2025-06-22 10:47 | Outpatient (AMB) | payer OTHER, SELFPAY ==
[2025-06-22 11:53] VITALS: BP 130/80; PULSE 68; BMI 34.3
--- NOTE | 2025-06-22 11:53 | MHC.OFFVIS ---
Vital Signs 06/22/25 11:53 Height 5 ft 2 in Weight 187 lb 6.287 oz BMI 34.3 BP 130/80 Blood Pressure Location Lt brachial Position Sitting Pulse 68 Pulse Source Pulse Oximeter Intake Visit Reasons: 3 [facility]th f[facility] Coord[facility] Required: No Accompanied by: Self / Same As Patient Allergies garlic (GARLIC) Allergy (Intermediate, Verified 08/08/23 11:12) EYE SWELLING latex (LATEX) Allergy (Intermediate, Verified 08/08/23 11:12) PUFFINESS Medication List - Last Reconciled 06/22/25 by Isaiah Cummings MD alogliptin 12.5 mg PO DAILY amlodipine 10 mg (2 x 5 mg) PO DAILY 90 days aspirin (Adult Low Dose Aspirin) 81 mg PO DAILY atorvastatin 80 mg PO DAILY hydrochlorothiazide 25 mg PO DAILY 90 days insulin glargine (Lantus U-100 Insulin) 20 units subcut DAILY isosorbide mononitrate ER 30 mg PO DAILY losartan 100 mg PO DAILY metformin 1,000 mg PO BID metoprolol succinate ER 25 mg PO BID 90 days rivaroxaban (Xarelto) 2.5 mg PO BID HPI Comments Details: 70-year-old female here for follow-up. She was seen previously for elevated blood pressure. She also had anemia in the past from low iron intake. She underwent cardiac catheterization in the past which did not show any significant coronary disease. She is returning for follow-up today. She has been taking her medications regularly. Blood pressure control is very good. She is currently taking amlodipine 10 mg, hydrochlorothiazide 25 mg, isosorbide mononitrate 30 mg, metoprolol succinate 25 mg twice a day and losartan 100 mg daily. She is also on rivaroxaban 2.5 mg twice a day for carotid disease. Clinically stable and has no chest discomfort shortness of breath. Has not been physically active. 04/04/23: She returns for follow-up. She recently had pneumonia and received antibiotics. She has been taking medications regularly. Blood pressure control has been good. She is denying any chest discomfort or shortness of breath. Compliant with medications. No bleeding concerns. 08/08/2023: She returns for follow-up. She has been doing well. No chest discomfort shortness of breath. She has not started exercising yet. Blood pressure control continues to be very good. She is taking medication regularly. No bleeding issues currently. She is taking rivaroxaban 2.5 mg twice a day for peripheral vascular disease. 04/07/2024: She is here for follow-up. She is doing well. Blood pressure is well controlled. Taking medication regularly. We discussed about exercise and she is saying she plans to start soon. Her sugar control has been up and down and I have advised her that regular exercise will help her. 02/25/2025: Here for follow-up. Denying any symptoms. Blood pressure is 140/62. She has not been checking her blood pressure at home. We discussed about her diet and she appears to have significant salt intake in her day-to-day life. 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 She has cut back significantly more recently but continues to consume foods with high salt content. She is on multiple medications for hypertension currently and has carotid stenosis. 06/22/2025: She is here for follow-up. Blood pressure is well controlled. She has dental issues and he is currently taking ibuprofen and amoxicillin. I have advised her to limit the ibuprofen as much as possible. She can use Tylenol instead. [facility] Medical History Hyperlipidemia Carotid stenosis FHx: cholecystectomy Surgical History History of cardiac cath Hx of section History of cataract surgery Family History Father No problems noted. Mother Diabetes Family/Other Stomach cancer Social History Alcohol intake: never Patient Tobacco Use Status: Former Tobacco user Years Smoked: 5 +/- Review of Systems Const Denies chills, Denies fatigue, Denies fever(s), Denies frequent falls, Denies weakness, Denies weight gain and Denies weight loss ENT Denies dizziness Card Denies chest pain, Denies leg edema, Denies lightheadedness, Denies palpitations, Denies dyspnea and Denies dyspnea on exertion Resp Denies cough, Denies dyspnea and Denies dyspnea on exertion GI Denies hematochezia Musc Denies abnormal gait, Denies muscle weakness, Denies numbness, Denies radiating pain into limb and Denies tingling Neuro Denies abnormal gait, Denies dizziness, Denies frequent falls, Denies numbness, Denies tingling and Denies weakness Endo Denies fatigue and Denies palpitations Physical Exam Vital Signs: Last Vital Signs Pulse 68 06/22/25 11:53 BP 130/80 06/22/25 11:53 BMI result Body Mass Index 34.3 GENERAL APPEARANCE: in no acute distress, well developed, well nourished. NECK/THYROID: bilateral carotid bruits. No JVD. SKIN: no suspicious lesions, warm and dry. HEART: no murmurs, regular rate and rhythm, S1, S2 normal. LUNGS: clear to auscultation bilaterally. ABDOMEN: normal, bowel sounds present, soft, nontender, nondistended. EXTREMITIES: no clubbing, cyanosis, or edema. PERIPHERAL PULSES: equal. NEUROLOGIC: nonfocal, alert and oriented. PSYCH: mood/affect full range. Assessment & Plan Assessment & Plan (1) Hypertension: Code(s): I10 - Essential (primary) hypertension Category: Medical (2) Carotid stenosis: Code(s): I65.29 - Occlusion and stenosis of unspecified carotid artery Category: Medical (3) Hyperlipidemia: Code(s): E78.5 - Hyperlipidemia, unspecified Category: Medical Plan Pleasant 70-year-old female with hypertension, hyperlipidemia, diabetes and carotid stenosis. She is taking aspirin and low-dose rivaroxaban for the peripheral vascular disease. Taking medications regularly. Blood pressure control is good. She has dental infection and is currently getting ibuprofen and amoxicillin. I have advised her to limit ibuprofen because it can lead to worsening hypertension. Continue atorvastatin for hyperlipidemia. Follow up in 4 months. Thank you for allowing me to participate in the care of your patient. Please feel free to contact me if you have any questions. Coding Level of Care Code Est Pt Level 4 (12923) Diagnoses Hypertension I10 Carotid stenosis I65.29 Hyperlipidemia E78.5
== END 2025-06-22 12:13 | disposition home or self-care (01) ==
LOC: HO.HCS 10:48
PROVIDERS: PCP Family Medicine; Referring Provider Internal Medicine Cardiovascular Disease; Visit Provider Internal Medicine Cardiovascular Disease
DX: I10 Essential (primary) hypertension (principal); I65.29 Occlusion and stenosis of unspecified carotid artery; E78.5 Hyperlipidemia, unspecified
CPT/HCPCS: 99214

== ENCOUNTER → 2025-06-22 10:47 | Outpatient (BNVA) | payer OTHER, SELFPAY | PROVIDERS: PCP Family Medicine; Visit Provider Internal Medicine Cardiovascular Disease | DX: I10 Essential (primary) hypertension (principal); E78.5 Hyperlipidemia, unspecified; I65.29 Occlusion and stenosis of unspecified carotid artery; E11.9 Type 2 diabetes mellitus without complications; I73.9 Peripheral vascular disease, unspecified | CPT/HCPCS: 99212 ==

== ENCOUNTER 2025-07-21 08:58 | Outpatient (REF) | payer OTHER, SELFPAY ==
--- NOTE | ~2025-07-21 | MM_ITS ---
EXAMINATION: MM SCREENING DIGITAL BREAST TOMOSYNTHESIS, BILATERAL CLINICAL INFORMATION: Screening. Asymptomatic. COMPARISON: Mammography: Comparison is made with available priors TECHNIQUE: Digital breast mammography with tomosynthesis is performed in both the craniocaudal and mediolateral oblique views along with computer-aided detection (CAD). FINDINGS: There are scattered areas of fibroglandular density. There are no significant masses, abnormal calcifications, or other abnormalities. MM/MM tomosynthesis screening BI IMPRESSION: No mammographic evidence of malignancy. ASSESSMENT: BI-RADS Category 1: Negative RECOMMENDATION: Routine annual mammography screening. 1 year F/U This examination should not preclude the clinical evaluation of a suspicious palpable abnormality. This patient's information was entered into a reminder system with a target due date for their next mammogram. Electronically signed by: Flor Mark DO 07/21/2025 03:10 PM EDT
== END 2025-07-21 08:59 | disposition home or self-care (01) ==
LOC: HO.MAMMO 08:58
PROVIDERS: PCP Family Medicine; Visit Provider Family Medicine
DX: Z12.31 Encounter for screening mammogram for malignant neoplasm of breast (principal)
CPT/HCPCS: 77063; 77067